=== PATIENT | male | born 1960 | race Caucasian/White ===

== ENCOUNTER 2018-08-16 09:04 | Outpatient (CLI) | payer MEDICAID ==
[2018-08-16] MEDS ORDERED: ALBUTEROL NEB 2.5 MG/3 ML INH ONE (11:30)
== END 2018-08-16 09:05 | disposition home or self-care (01) ==
LOC: RT 09:04
PROVIDERS: ATTEND Internal Medicine
DX: J44.9 Chronic obstructive pulmonary disease, unspecified (principal)
CPT/HCPCS: 94060; 94727; 94729

== ENCOUNTER 2019-03-17 13:07 | Emergency (ER) | payer MEDICAID ==
[2019-03-17 13:20] VITALS: BP 130/74
--- NOTE | 2019-03-17 15:16 | ED Physician Documentation ---
PD HPI URI - Stated complaint Stated Complaint: COUGHING,SNEEKING,WHEEZING - Chief complaint Chief Complaint: Resp - History obtained from History obtained from: Patient - History of Present Illness Timing - onset: How many days ago (7) Timing duration: Days (7) Timing details: Gradual onset Associated symptoms: Rhinorrhea, Sore throat, Productive cough, Dyspnea. No: Fever, Ear pain, Nasal congestion, Sinus pain, Hemoptysis, Chest pain, NVD, Bilateral edema, Unilateral edema Contributing factors: Other (Has recently been right remodeling at home) Improves by: MDI/nebulizer Similar symptoms before: Diagnosis (Bronchitis) Recently seen: Not recently seen - Additional information Additional information: This a 58-year-old man who presents with complaints that a week ago he developed what he thought was just "a summer cold". Over the past 3 days however it is gotten much worse he is coughing up greenish-brownish phlegm. He has a mild sore throat and has some clear mucus drainage. No ear pain. Patient quit smoking 6 months ago. He does feel short of breath. Has a history of asthma and is been using his albuterol 2-3 times a day. He has been treated with a Medrol Dosepak in the past back in 2015 was the most recent time. He denies chest pain. No nausea or vomiting. He also reports that his eyes have been crusting and a little bit goopy which she attributes to the remodeling and wiping his eyes a lot while he is been in that environment. He has tried a multisymptom cold medicine which helps briefly and he had some leftover codeine cough syrup which seem to help the cough quite a bit but made him loopy. 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 Review of Systems Constitutional: denies: Fever Eyes: reports: Discharge, Irritation Ears: denies: Ear pain Nose: reports: Rhinorrhea / runny nose. denies: Congestion Throat: reports: Sore throat Cardiac: denies: Chest pain / pressure Respiratory: reports: Dyspnea, Cough, Wheezing GI: denies: Nausea, Vomiting, Diarrhea Skin: denies: Rash PD PAST MEDICAL HISTORY - Past Medical History Past Medical History: No - Present Medications Home Medications: Ambulatory Orders Medication Instructions Recorded Confirmed Azithromycin [Zithromax] 0 mg PO DAILY #6 tablet 03/17/19 Guaifenesin/Codeine Phosphate 5 ml PO Q4HR PRN #120 liquid 03/17/19 [Cheratussin AC Syrup] Methylprednisolone [Medrol Dose 1 each PO .PACKAGEINSTRUCTIONS 6 03/17/19 Pack] Days #1 each - Allergies Allergies/Adverse Reactions: Allergies Allergy/AdvReac Type Severity Reaction Status Date / Time venom-honey bee Allergy Intermediate Swelling Verified 03/17/19 13:20 - Social History Does the pt smoke?: No Smoking Status: Former smoker PD ED PE NORMAL - Vitals Vital signs reviewed: Yes - General General: Alert and oriented X 3, No acute distress, Well developed/nourished - HEENT HEENT: Atraumatic, PERRL, Moist mucous membranes, Pharynx benign, Other (There is a white mucoid discharge in his nostrils bilaterally. The left eye conjunctiva is mildly injected. There is minimal edema and erythema to the medial canthus of that left eye. No active drainage.) - Neck Neck: Supple, no meningeal sign, No adenopathy, Thyroid normal - Cardiac Cardiac: RRR, No murmur, Strong equal pulses - Respiratory Respiratory: No respiratory distress, Other (He has wheezing throughout the lung ortez that actually cleared significantly with a deep cough. He was still wheezing a little at the bases bilaterally.) - Abdomen Abdomen: Normal bowel sounds - Derm Derm: Normal color, Warm and dry, No rash - Extremities Extremities: No edema - Neuro Neuro: Alert and oriented X 3 - Psych Psych: Normal mood, Normal affect Results - Vitals Vitals: Vital Signs - 24 hr 03/17/19 13:18 Temperature 35.9 C L Heart Rate 84 Respiratory 16 Rate Blood Pressure 130/74 O2 Saturation 97 Oxygen O2 Source Room air PD MEDICAL DECISION MAKING - ED course Complexity details: d/w patient ED course: Patient was placed on a Zithromax Z-Jonathan and a Medrol Dosepak. He still has his albuterol inhaler that he can use up to every 4 hours as needed. Also giving him a scription for codeine cough syrup. Follow-up if he is not improving. Departure - Departure Disposition: 01 Home, Self Care Clinical Impression: Bronchitis Condition: Good Instructions: ED Upper Resp Infec Abx Tx Follow-Up: Ankur Almazan MD [Primary Care Provider] - Prescriptions: Guaifenesin/Codeine Phosphate [Cheratussin AC Syrup] 5 ml PO Q4HR PRN #120 liquid PRN Reason: Cough Azithromycin [Zithromax] 0 mg PO DAILY #6 tablet Methylprednisolone [Medrol Dose Pack] 1 each PO .PACKAGEINSTRUCTIONS 6 Days #1 each Comments: Take the Z-Jonathan as prescribed. Take the Medrol Dosepak as prescribed. Use your an inhaler up to every 4 hours as needed for wheezing. Use the codeine cough syrup as needed but do not drive or operate machinery if taking that. Follow-up with your primary care provider if not improving or return if you have worsening shortness of breath, develop chest pain or other problems arise.
== END 2019-03-17 15:46 | disposition home or self-care (01) ==
LOC: ED 13:07
DX: J40 Bronchitis, not specified as acute or chronic (principal); Z87.891 Personal history of nicotine dependence
CPT/HCPCS: 99283; 99284

== ENCOUNTER 2019-08-24 13:40 | Outpatient (CLI) | payer OTHER, MEDICAID ==
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
== END 2019-08-24 13:41 | disposition home or self-care (01) ==
LOC: DI 13:40
PROVIDERS: ATTEND Internal Medicine
DX: M47.816 Spondylosis without myelopathy or radiculopathy, lumbar region (principal); M43.9 Deforming dorsopathy, unspecified
CPT/HCPCS: 72100

== ENCOUNTER 2019-09-06 10:19 | Outpatient (CLI) | payer OTHER, MEDICAID | END 2019-09-06 10:20 | disposition home or self-care (01) | LOC: LAB 10:19 | PROVIDERS: ATTEND Internal Medicine | DX: N52.1 Erectile dysfunction due to diseases classified elsewhere (principal) | CPT/HCPCS: 36415; 81599; 84402; 84403 ==

== ENCOUNTER 2019-09-07 15:29 | Outpatient (CLI) | payer OTHER, MEDICAID ==
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
== END 2019-09-07 15:30 | disposition home or self-care (01) ==
LOC: DI 15:29
PROVIDERS: ATTEND Internal Medicine
DX: S22.080D Wedge compression fracture of T11-T12 vertebra, subsequent encounter for fracture with routine healing (principal)
CPT/HCPCS: 77080

== ENCOUNTER 2020-05-07 08:00 | Outpatient (CLI) | payer MEDICAID, OTHER ==
--- NOTE | 2020-05-07 12:15 | XRAY Report ---
PROCEDURE: Knee 3 View LT INDICATIONS: KNEE PAIN, LEFT TECHNIQUE: 3 views of the left knee(s) were acquired. COMPARISON: None. FINDINGS: Bones: No fractures or dislocations. No suspicious bony lesions. Soft tissues: No joint effusion. No suspicious soft tissue calcifications. IMPRESSION: No fracture. No osseous lesion. If there is continued clinical concern for pathology, then repeat pl ain film radiographs (7-10 days) or advanced imaging (CT, MR, bone scan) should be considered for fur ther evaluation. Reviewed by: Malia Phelan MD, PhD on 05/07/2020 12:13 PM PDT Approved by: Malia Phelan MD, PhD on 05/07/2020 12:13 PM PDT Station ID: [id number]
== END 2020-05-07 23:59 | disposition home or self-care (01) ==
LOC: DI.S 08:00
PROVIDERS: ATTEND Physician Assistant Medical
DX: M25.562 Pain in left knee (principal)

== ENCOUNTER 2020-05-25 10:38 | Outpatient (CLI) | payer MEDICAID | END 2020-05-25 23:59 | disposition home or self-care (01) | LOC: LAB.R 10:38 | PROVIDERS: ATTEND Physician Assistant Medical | DX: L03.116 Cellulitis of left lower limb (principal) | CPT/HCPCS: 87070; 87181; 87205 ==

== ENCOUNTER 2020-06-28 07:15 | Outpatient (CLI) | payer MEDICAID ==
[2020-06-28 13:04] LABS: BASOPHILS % (AUTO) 0.5 %; EOSINOPHILS # (AUTO) 0.2 10^3/uL (0.0-0.7); HGB - HEMOGLOBIN 14.7 g/dL (14.0-18.0); LYMPHOCYTES # (AUTO) 2.2 10^3/uL (1.5-3.5); LYMPHOCYTES % (AUTO) 29.5 %; MEAN CORPUSCULAR HEMOGLOBIN 31.3 pg (27.0-31.0); MEAN CORPUSCULAR HGB CONC 31.9 g/dL (32.0-36.0); MEAN CORPUSCULAR VOLUME 98.1 fL (80.0-94.0); MEAN PLATELET VOLUME 11.1 fL (7.4-11.4); MONOCYTES # (AUTO) 0.7 10^3/uL (0.0-1.0); NEUTROPHILS # (AUTO) 4.1 10^3/uL (1.5-6.6); NEUTROPHILS % (AUTO) 56.5 %; PLT - PLATELET COUNT 254 10^3/uL (130-450); RED CELL DISTRIBUTION WIDTH 13.5 % (12.0-15.0); WHITE BLOOD COUNT 7.3 x10^3/uL (4.8-10.8)
[2020-06-28 13:34] LABS: ALBUMIN/GLOBULIN RATIO 1.4 (1.0-2.2); ALKALINE PHOSPHATASE 51 IU/L (42-121); ALT ALANINE AMINOTRANSFERASE 21 IU/L (10-60); AST ASPARTATE AMINOTRANSFERASE 17 IU/L (10-42); BILIRUBIN,TOTAL 0.6 mg/dL (0.2-1.0); BUN - BLOOD UREA NITROGEN 16 mg/dL (6-20); CALCIUM 8.6 mg/dL (8.5-10.3); CARBON DIOXIDE - CO2 28 mmol/L (21-32); CHLORIDE 102 mmol/L (101-111); CHOL/HDL RATIO 4.4 (<5.0); CHOLESTEROL 195 mg/dL; CREATININE 0.8 mg/dL (0.6-1.2); GLUCOSE 114 mg/dL (70-100); HDL CHOLESTEROL 44 mg/dL; LDL CHOLESTEROL,CALCULATED 121 mg/dL; LDL/HDL RATIO 2.8 (<3.6); SODIUM 138 mmol/L (135-145); TOTAL PROTEIN 6.8 g/dL (6.7-8.2); VLDL CHOLESTEROL 30 mg/dL
[2020-06-28 13:53] LABS: CREATININE,URINE 141.6 mg/dL; MICROALBUM/CREATININE RATIO,UR 2.8 ug/mg (<30.0); MICROALBUMIN,URINE 0.4 mg/dL (0-300.0)
[2020-06-28 14:24] LABS: CRP - C-REACTIVE PROTEIN < 1.0 mg/dL (0-1.0)
== END 2020-06-28 23:59 | disposition home or self-care (01) ==
LOC: LAB.WCP 07:15
PROVIDERS: ATTEND Family Medicine
DX: E11.628 Type 2 diabetes mellitus with other skin complications (principal); M54.5 Low back pain; G89.29 Other chronic pain; I87.2 Venous insufficiency (chronic) (peripheral); L40.9 Psoriasis, unspecified; L03.116 Cellulitis of left lower limb; M25.562 Pain in left knee
CPT/HCPCS: 36415; 80050; 80061; 82043; 82570; 83036; 83721; 84153; 85651; 86140

== ENCOUNTER 2020-10-02 09:12 | Outpatient (CLI) | payer MEDICAID ==
--- NOTE | 2020-10-02 11:30 | XRAY Report ---
PROCEDURE: Chest 2 View X-Ray INDICATIONS: COPD TECHNIQUE: 2 view(s) of the chest. COMPARISON: None. FINDINGS: Surgical changes and devices: None. Lungs and pleura: No pleural effusions or pneumothorax. Lungs are clear. Mediastinum: Mediastinal contours are normal. Heart size is normal. Minimal wedging of the lower thoracic vertebral bodies, which could be physiologic, technically age i ndeterminate.. IMPRESSION: No acute disease Reviewed by: Srinivas Diaz MD on 10/02/2020 11:28 AM PST Approved by: Srinivas Diaz MD on 10/02/2020 11:28 AM PST Station ID: [id number]
== END 2020-10-02 23:59 | disposition home or self-care (01) ==
LOC: DI.WCP 09:12
PROVIDERS: ATTEND Family Medicine
DX: J44.9 Chronic obstructive pulmonary disease, unspecified (principal)

== ENCOUNTER 2020-10-30 18:35 | Outpatient (CLI) | payer MEDICAID | END 2020-10-30 18:36 | disposition EMS.NT | LOC: EMS 18:35 | DX: R53.81 Other malaise (principal); R42 Dizziness and giddiness ==

== ENCOUNTER 2021-04-09 12:11 | Emergency (ER) | payer MEDICAID ==
--- NOTE | 2021-04-09 12:33 | ED Physician Documentation ---
History of Present Illness - Stated complaint Stated Complaint: AFIB - Chief complaint Chief Complaint: Cardiac - Additonal information Additional information: 61-year-old male who has a history of COPD, hypertension and asthma as well as early diabetes (last A1c 6) presents to emergency department for evaluation of worsening fatigue and dyspnea that has been ongoing for a few months but progressively worse over the last week. He has also noticed increased swelling in his lower legs. He reports this provider that for about the last week when he wakes up in the morning he feels a panic in his chest and palpitations which she has never experienced before. Due to the worsening fatigue and shortness of air he did go to a walk-in clinic where an EKG was completed that showed A. fib with RVR up to 140 he was thus advised to come to the ER. He denies any previous history of atrial fibrillation. No history of stroke or coronary artery disease. This gentleman is fully vaccinated for COVID-19 in October 2020. Meds: Include but not limited to hydrochlorothiazide, atorvastatin, albuterol, Pulmicort. Review of Systems Constitutional: denies: Fever, Chills Eyes: reports: Reviewed and negative Ears: reports: Reviewed and negative Nose: reports: Reviewed and negative Throat: reports: Reviewed and negative Cardiac: reports: Palpitations, Pedal edema. denies: Chest pain / pressure, Calf pain Respiratory: reports: Dyspnea, Cough. denies: Hemoptysis GI: denies: Abdominal Pain, Nausea, Vomiting : reports: Reviewed and negative Skin: reports: Reviewed and negative Musculoskeletal: reports: Reviewed and negative PD PAST MEDICAL HISTORY - Present Medications Home Medications: Ambulatory Orders Medication Instructions Recorded Confirmed Azithromycin [Zithromax] 0 mg PO DAILY #6 tablet 03/17/19 Codeine Phosphate/Guaifenesin 5 ml PO Q4HR PRN #120 liquid 03/17/19 [Cheratussin AC Syrup] methylPREDNISolone [Medrol Dose 1 each PO .PACKAGEINSTRUCTIONS 6 03/17/19 Pack] Days #1 each Albuterol Sulf [Ventolin Hfa 1 - 2 puffs PO DAILY 04/09/21 04/09/21 Inhaler] Apixaban [Eliquis] 5 mg PO BID #60 tablet 04/09/21 Budesonide [Pulmicort] 1 - 2 puffs PO BID 04/09/21 04/09/21 Furosemide [Lasix] 40 mg PO DAILY #14 tablet 04/09/21 Glipizide [Glipizide ER] 1 tab PO DAILY 04/09/21 04/09/21 Metoprolol Tartrate [Lopressor] 50 mg PO BID #60 tablet 04/09/21 Pravastatin [Pravachol] 1 tab PO DAILY 04/09/21 04/09/21 hydroCHLOROthiazide [Hydrodiuril] 1 tab PO DAILY 04/09/21 04/09/21 - Allergies Allergies/Adverse Reactions: Allergies Allergy/AdvReac Type Severity Reaction Status Date / Time venom-honey bee Allergy Intermediate Swelling Verified 04/09/21 12:41 - Social History Does the pt smoke?: No Smoking Status: Former smoker PD ED PE EXPANDED - General General: Alert, No acute distress, Other (Obese) - HEENT HEENT: Atraumatic, PERRL, EOMI, Pharynx normal - Neck Neck: Supple w/out meningeal sx. No: Adenopathy - Cardiac Cardiac: Tachy, Irregularly irregular, Murmur Present, Radial strong equal, Pedal strong equal, Cap refill < 2 sec - Respiratory Respiratory: Rhonchi (Generalized rhonchorous air sounds with expiratory wheezing globally. This does clear somewhat with a forceful cough.). No: Clear to ausultation anoop, Distress, Labored - Abdomen Abdomen: Normal Bowel sounds. No: Tender to palpation - Derm Derm: Normal color, Warm and dry. No: Rash - Extremities Extremities: Normal. No: Deformity, Tenderness - Neuro Neuro: Alert and Oriented X 3, CNII-XII intact, Normal gait. No: Confused - GCS Eye Opening: Spontaneous Motor: Obeys Commands Verbal: Oriented Total: 15 Results - Vitals Vitals: Vital Signs - 24 hr 04/09/21 04/09/21 04/09/21 12:16 12:57 13:12 Temperature 96.4 C H Heart Rate 113 H 120 H 126 H Respiratory 18 19 19 Rate Blood Pressure 140/102 H 120/91 H 129/84 H O2 Saturation 97 97 97 04/09/21 04/09/21 14:07 14:44 Temperature Heart Rate 119 H 126 H Respiratory 19 Rate Blood Pressure 124/92 H O2 Saturation 96 Oxygen O2 Source Room air - EKG (time done) 1231 Rate: Rate (enter#) (136) Rhythm: Atrial fibrillation Liguori: RAD Intervals: Prolonged QT QRS: Low voltage Ischemia: Non specific changes Compare to prior EKG: Old EKG unavailable Computer interpretation: Agree with computer - Labs Labs: Laboratory Tests 04/09/21 04/09/21 04/09/21 12:30 12:30 12:30 WBC 12.2 H RBC 4.88 Hgb 15.6 Hct 47.8 MCV 98.0 H MCH 32.0 H MCHC 32.6 RDW 14.0 Plt Count 234 MPV 11.1 Neut # (Auto) 8.9 H Lymph # (Auto) 1.8 [place] # (Auto) 1.2 H Eos # (Auto) 0.2 Baso # (Auto) 0.1 Absolute Nucleated RBC 0.00 Nucleated RBC % 0.0 PT INR D-Dimer Sodium 140 Potassium 4.0 Chloride 101 Carbon Dioxide 29 Anion Gap 10.0 BUN 23 H Creatinine 0.9 Estimated GFR (MDRD) 86 L Glucose 87 Calcium 8.6 Total Bilirubin 1.0 AST 29 ALT 45 Alkaline Phosphatase 42 Troponin I High Sens 9.0 B-Natriuretic Peptide Total Protein 6.4 L Albumin 4.0 Globulin 2.4 Albumin/Globulin Ratio 1.7 Lipase 24 04/09/21 04/09/21 12:30 12:49 WBC RBC Hgb Hct MCV MCH MCHC RDW Plt Count MPV Neut # (Auto) Lymph # (Auto) [place] # (Auto) Eos # (Auto) Baso # (Auto) Absolute Nucleated RBC Nucleated RBC % PT 12.7 H INR 1.1 D-Dimer 276.8 H Sodium Potassium Chloride Carbon Dioxide Anion Gap BUN Creatinine Estimated GFR (MDRD) Glucose Calcium Total Bilirubin AST ALT Alkaline Phosphatase Troponin I High Sens B-Natriuretic Peptide 253 H Total Protein Albumin Globulin Albumin/Globulin Ratio Lipase - Rads (name of study) CXR Radiology: EMP read indepedently (Cardiomegaly with pulmonary vascular congestion) PD MEDICAL DECISION MAKING - ED course Complexity details: reviewed results, d/w patient, d/w network relations consultant (Yousef) ED course: 61-year-old male who carries a history of COPD and hypertension presents the emergency department with progressive dyspnea shortness of air for a number of weeks. He also has associated increased lower extremity swelling. New finding of atrial fibrillation today. He does endorse a feeling of palpitations for likely the last week. Chest x-ray is suggestive of CHF with volume overload. EKG initially showed atrial fibrillation with a rate about 140. We did achieve moderate rate control using 2 doses of Cardizem followed by oral Metroprolol which successfully brought his rate down into the 90s in the 110s. His [id number] score is 2. This gentleman was given a dose of Lasix here in the emergency department and he did diurese nearly 1 L. Following this he was ambulated in the room and hallway with no desaturations and he did report marked dyspnea improvement. We did offer this gentleman an observation admission for further diuresis, rate control as well as likely echocardiogram however he declined that. He feels that he would like to continue to try and manage this as an outpatient. Thus he will be started on Eliquis twice daily as well as Lasix. He is advised to stop his hydrochlorothiazide. He will also be started on metoprolol 50 mg twice daily. I did spend a fair amount of time discussing clinical manifestations of atrial fibrillation and our concerns any time we use anticoagulation. Patient will attempt follow-up with Dr. Briceno in the next week. Emergent worrisome return precautions were discussed. Departure - Departure Disposition: 01 Home, Self Care Clinical Impression: Atrial fibrillation by electrocardiogram CHF (congestive heart failure) Qualifiers: Heart failure type: unspecified Heart failure chronicity: unspecified Qualified Code(s): I50.9 - Heart failure, unspecified Condition: Stable Record reviewed to determine appropriate education?: Yes Instructions: Atrial Fibrillation Dc, ED CHF General Follow-Up: Bronson Hooker MD [Primary Care Provider] - Prescriptions: Apixaban [Eliquis] 5 mg PO BID #60 tablet Furosemide [Lasix] 40 mg PO DAILY #14 tablet Metoprolol Tartrate [Lopressor] 50 mg PO BID #60 tablet Comments: You are seen in the emergency department today for fatigue and shortness of breath. You were found to be in atrial fibrillation which is an irregular heart rate and new for you. Due to the atrial fibrillation you have developed some congestive heart failure. In order to manage the heart rate with atrial fibrillation I would like you to fill the medication for metoprolol and begin taking twice daily. Please measure your heart rates at home. If they are sustained greater than 135 or 140 and you are feeling short of breath or lightheaded you may need to return to the emergency department. In order to help manage the heart failure and reduce some of your excess fluid volume I am prescribing you Lasix. You are to take this once daily. It will cause you to pee a lot so I recommend you take it in the morning. I also recommend daily weights. In order to help prevent blood clots which can be a complication of atrial fibrillation I am starting you on medication called Eliquis. You are to take this twice daily. This does put you at increased risk for bleeding with minor events such as falling and hitting your head. If you develop any sudden severe headache, have black or bloody stools please return immediately to the ER for second evaluation. In order to further evaluate your heart failure and your atrial fibrillation please see Dr. Briceno within the next week. You should be referred for an outpatient echocardiogram. Your electrolytes should also be rechecked within the next week to make sure that the Lasix is not causing your potassium to become too low. I am giving you a limited prescription for the metoprolol, Eliquis and Lasix. Dr. Briceno will need to order these refills in the future. If at any point you feel that your shortness of breath is not improving, you develop chest pain, or have any fainting episodes, slurred speech, facial droop or arm or leg weakness then please return immediately to the ER for a second evaluation. Discharge Date/Time: 04/09/21 15:14
[2021-04-09] MEDS ORDERED: diltiaZEM INJ 5 MG/ML VIAL IVP STA ×2 (12:39→13:06)
[2021-04-09 12:42] LABS: BASOPHILS # (AUTO) 0.1 10^3/uL (0.0-0.1); BASOPHILS % (AUTO) 0.6 %; EOSINOPHILS # (AUTO) 0.2 10^3/uL (0.0-0.7); EOSINOPHILS % (AUTO) 1.2 %; HCT - HEMATOCRIT 47.8 % (42.0-52.0); HGB - HEMOGLOBIN 15.6 g/dL (14.0-18.0); LYMPHOCYTES # (AUTO) 1.8 10^3/uL (1.5-3.5); LYMPHOCYTES % (AUTO) 15.1 %; MEAN CORPUSCULAR HGB CONC 32.6 g/dL (32.0-36.0); MEAN PLATELET VOLUME 11.1 fL (7.4-11.4); MONOCYTES # (AUTO) 1.2 10^3/uL (0.0-1.0); MONOCYTES % (AUTO) 9.6 %; NEUTROPHILS # (AUTO) 8.9 10^3/uL (1.5-6.6); NEUTROPHILS % (AUTO) 73.3 %; PLT - PLATELET COUNT 234 10^3/uL (130-450); RED BLOOD COUNT 4.88 10^6/uL (4.70-6.10); WHITE BLOOD COUNT 12.2 x10^3/uL (4.8-10.8)
--- NOTE | 2021-04-09 13:00 | XRAY Report ---
PROCEDURE: Chest 1 View X-Ray INDICATIONS: Chest Pain TECHNIQUE: One view of the chest was acquired. COMPARISON: 10/02/2020 FINDINGS: Surgical changes and devices: None. Lungs and pleura: No pleural effusions or pneumothorax. Increased opacification of the lung bases bi laterally. There is central vascular congestion and cephalization of pulmonary vasculature suspicious for CHF. Mediastinum: Mediastinal contours appear normal. Heart size is normal. Bones and chest wall: No suspicious bony lesions. Overlying soft tissues appear unremarkable. IMPRESSION: 1. Increased bibasilar opacification which could represent pulmonary edema or pneumonia. 2. Cephalization of pulmonary vasculature and central vascular congestion concerning for CHF. Reviewed by: Malia Phelan MD, PhD on 04/09/2021 12:58 PM PDT Approved by: Malia Phelan MD, PhD on 04/09/2021 12:58 PM PDT Station ID: [id number]
[2021-04-09 13:01] LABS: ALBUMIN/GLOBULIN RATIO 1.7 (1.0-2.2); CALCIUM 8.6 mg/dL (8.5-10.3); CREATININE 0.9 mg/dL (0.6-1.2); TOTAL PROTEIN 6.4 g/dL (6.7-8.2)
[2021-04-09 13:03] LABS: INR 1.1 (0.8-1.2); PT - PROTHROMBIN TIME 12.7 secs (9.9-12.6)
[2021-04-09] MEDS ORDERED: METOPROLOL TARTRATE 50 MG TABLET PO STA (13:33)
[2021-04-09] MEDS ORDERED: FUROSEMIDE 40 MG/4 ML VIAL IVP STA (13:33)
[2021-04-09] MEDS ORDERED: APIXABAN 5 MG TABLET PO STA (13:35)
[2021-04-09 13:41] LABS: D-DIMER 276.8 ng/mL (200.0-255.0)
[2021-04-09 14:07] VITALS: BP 124/92
== END 2021-04-09 15:14 | disposition home or self-care (01) ==
LOC: ED 12:11
DX: I50.9 Heart failure, unspecified (principal); I48.91 Unspecified atrial fibrillation; Z87.891 Personal history of nicotine dependence
CPT/HCPCS: 36415; 71045; 80053; 83690; 83880; 84484; 85025; 85379; 85610; 93005; 96374; 96375; 99284; A9270

== ENCOUNTER 2021-04-11 12:27 | Outpatient (CLI) | payer MEDICAID | END 2021-04-11 12:28 | disposition critical access hospital (66) | LOC: EMS 12:27 | DX: I48.91 Unspecified atrial fibrillation (principal); Z79.01 Long term (current) use of anticoagulants | CPT/HCPCS: A0425; A0427; A0999 ==

== ENCOUNTER 2021-04-11 12:53 | Emergency (ER) | payer MEDICAID ==
[2021-04-11] MEDS ORDERED: METOPROLOL 5 MG/5 ML VIAL IVP STA (13:08)
--- NOTE | 2021-04-11 13:09 | ED Physician Documentation ---
History of Present Illness - Stated complaint Stated Complaint: AFIB RVR - History obtained from History obtained from: Patient, EMS - Additonal information Additional information: 61-year-old gentleman presents by ambulance. He was seen by my partner 2 days ago for symptomatic new onset atrial fibrillation. Looking at the chart, it was not completely clear how long he had been in A. fib. He was discharged on Lasix, Eliquis, and metoprolol at a dose of 50 mg twice a day which he has been compliant with. He was at rest about an hour ago and developed lightheadedness and a woozy feeling similar to prior and EMS was summoned and found him to be in rapid A. fib with a rate of about 150. Prior to arrival got 20 mg of diltiazem IV, still in A. fib but with rate around 110 and much less symptomatic. Review of Systems Ten Systems: 10 systems reviewed and negative Constitutional: reports: Fatigue Cardiac: denies: Chest pain / pressure, Pedal edema, Calf pain Respiratory: denies: Dyspnea PD PAST MEDICAL HISTORY - Past Medical History Cardiovascular: Hypertension, Atrial fibrillation Respiratory: COPD - Present Medications Home Medications: Ambulatory Orders Medication Instructions Recorded Confirmed Azithromycin [Zithromax] 0 mg PO DAILY #6 tablet 03/17/19 Codeine Phosphate/Guaifenesin 5 ml PO Q4HR PRN #120 liquid 03/17/19 [Cheratussin AC Syrup] methylPREDNISolone [Medrol Dose 1 each PO .PACKAGEINSTRUCTIONS 6 03/17/19 Pack] Days #1 each Albuterol Sulf [Ventolin Hfa 1 - 2 puffs PO DAILY 04/09/21 04/09/21 Inhaler] Apixaban [Eliquis] 5 mg PO BID #60 tablet 04/09/21 Budesonide [Pulmicort] 1 - 2 puffs PO BID 04/09/21 04/09/21 Furosemide [Lasix] 40 mg PO DAILY #14 tablet 04/09/21 Glipizide [Glipizide ER] 1 tab PO DAILY 04/09/21 04/09/21 Metoprolol Tartrate [Lopressor] 50 mg PO BID #60 tablet 04/09/21 Pravastatin [Pravachol] 1 tab PO DAILY 04/09/21 04/09/21 hydroCHLOROthiazide [Hydrodiuril] 1 tab PO DAILY 04/09/21 04/09/21 Metoprolol Succinate [Toprol Xl] 3 tab PO DAILY #90 tablet 04/11/21 - Allergies Allergies/Adverse Reactions: Allergies Allergy/AdvReac Type Severity Reaction Status Date / Time venom-honey bee Allergy Intermediate Swelling Verified 04/11/21 13:10 - Social History Does the pt smoke?: No Smoking Status: Former smoker Does the pt drink ETOH?: No Does the pt have substance abuse?: Yes PD ED PE NORMAL - Vitals Vital signs reviewed: Yes - General General: Alert and oriented X 3, No acute distress - HEENT HEENT: PERRL, EOMI - Neck Neck: Supple, no meningeal sign, No bony TTP - Cardiac Cardiac: Other (Irregularly irregular without murmur) - Respiratory Respiratory: No respiratory distress - Abdomen Abdomen: Non tender - Back Back: No CVA TTP, No spinal TTP - Derm Derm: Normal color, Warm and dry - Extremities Extremities: Other (1+ pitting pedal edema bilaterally and symmetric with venous stasis changes) - Neuro Neuro: Alert and oriented X 3, Normal speech Results - Vitals Vitals: Vital Signs - 24 hr 04/11/21 04/11/21 13:07 13:10 Temperature 36.7 C 36.7 C Heart Rate 112 H 112 H Respiratory 18 18 Rate Blood Pressure 143/88 H 143/88 H O2 Saturation 97 97 Oxygen O2 Source Room air - Labs Labs: Laboratory Tests 04/11/21 13:24 Sodium 139 Potassium 4.2 Chloride 101 Carbon Dioxide 28 Anion Gap 10.0 BUN 25 H Creatinine 0.9 Estimated GFR (MDRD) 86 L Glucose 103 H Calcium 8.5 Magnesium 2.0 PD MEDICAL DECISION MAKING - ED course ED course: Discussed with him options including potential transfer to the [facility] for evaluation for AARON and cardioversion versus increasing his beta-blockade and follow-up and he requests the latter. He has been compliant with his medications. 61-year-old gentleman has been in A. fib for an unknown length of time and developed RVR today which was symptomatic. He was feeling fine after one dose of IV metoprolol. His electrolytes are unremarkable. We will increase his metoprolol from 100 mg a day to 150. Departure - Departure Disposition: 01 Home, Self Care Clinical Impression: Atrial fibrillation by electrocardiogram Condition: Good Record reviewed to determine appropriate education?: Yes Instructions: Atrial Fibrillation Dc Prescriptions: Metoprolol Succinate [Toprol Xl] 3 tab PO DAILY #90 tablet Comments: For now you can continue to take the metoprolol that nurse practitioner Yonis gave you but increase it to 3 times a day. I am writing a prescription for long-acting metoprolol that can be taken once a day when you run out of that. Follow-up next week as scheduled with Dr. Alcala for recheck, potential referral for echocardiography and/or cardiology consultation. Return if worse.
[2021-04-11 13:50] LABS: CALCIUM 8.5 mg/dL (8.5-10.3); CREATININE 0.9 mg/dL (0.6-1.2); POTASSIUM 4.2 mmol/L (3.5-5.0)
[2021-04-11 14:06] VITALS: BP 121/96
== END 2021-04-11 14:05 | disposition home or self-care (01) ==
LOC: EDUNIT# → ED 12:53
DX: I48.91 Unspecified atrial fibrillation (principal); Z79.01 Long term (current) use of anticoagulants; Z87.891 Personal history of nicotine dependence
CPT/HCPCS: 36415; 80048; 83735; 96374; 99283

== ENCOUNTER 2021-04-17 11:29 | Outpatient (CLI) | payer MEDICAID | END 2021-04-17 11:30 | disposition home or self-care (01) | LOC: DI 11:29 | PROVIDERS: ATTEND Family Medicine | DX: R06.09 Other forms of dyspnea (principal); J44.9 Chronic obstructive pulmonary disease, unspecified; E66.01 Morbid (severe) obesity due to excess calories; I11.9 Hypertensive heart disease without heart failure; Z87.891 Personal history of nicotine dependence; I48.91 Unspecified atrial fibrillation; I87.8 Other specified disorders of veins | CPT/HCPCS: 93306 ==

== ENCOUNTER 2021-04-17 12:35 | Emergency (ER) | payer MEDICAID ==
--- NOTE | 2021-04-17 12:54 | ED Physician Documentation ---
PD HPI CHEST PAIN - Stated complaint Stated Complaint: HEART FAILURE - History obtained from History obtained from: Patient - Additional information Additional information: 61-year-old gentleman with morbid obesity, hypertension, diabetes borderline and COPD was originally seen by my partner on 09 April with a new diagnosis of A. fib with RVR. He was not offered cardioversion because the symptoms had been going on for potentially weeks or months. He is started on anticoagulation with Eliquis, Lasix at a dose of 40 mg a day and metoprolol 50 mg twice a day. I saw him again 2 days later. He was still in A. fib with RVR. We increased his beta-blockade. In the interim saw his outpatient physician and had an echo done this morning. He is referred over from echo lab because he is still in A. fib with RVR now with a preliminary ejection fraction of 20 to 30% with mild to moderate MR. No clear thrombus on AARON. He has severe dyspnea especially with exertion. He does have orthopnea and is sleeping in a lazy boy. Review of Systems Ten Systems: 10 systems reviewed and negative Constitutional: reports: Fatigue Cardiac: denies: Chest pain / pressure Respiratory: reports: Dyspnea PD PAST MEDICAL HISTORY - Past Medical History Cardiovascular: Hypertension, Atrial fibrillation Respiratory: COPD - Present Medications Home Medications: Ambulatory Orders Medication Instructions Recorded Confirmed Albuterol Sulf [Ventolin Hfa 1 - 2 puffs PO DAILY 04/09/21 04/17/21 Inhaler] Apixaban [Eliquis] 5 mg PO BID #60 tablet 04/09/21 04/17/21 Budesonide [Pulmicort] 1 - 2 puffs PO BID 04/09/21 04/17/21 Glipizide [Glipizide ER] 1 tab PO DAILY 04/09/21 04/17/21 Pravastatin [Pravachol] 1 tab PO DAILY 04/09/21 04/17/21 Metoprolol Succinate [Toprol Xl] 3 tab PO DAILY #90 tablet 04/11/21 04/17/21 Furosemide [Lasix] 80 mg PO DAILY 04/17/21 04/17/21 - Allergies Allergies/Adverse Reactions: Allergies Allergy/AdvReac Type Severity Reaction Status Date / Time venom-honey bee Allergy Intermediate Swelling Verified 04/11/21 13:10 - Social History Does the pt smoke?: No Smoking Status: Former smoker Does the pt drink ETOH?: No Does the pt have substance abuse?: Yes - Family History Family history: reports: Non contributory PD ED PE NORMAL - Vitals Vital signs reviewed: Yes - General General: Alert and oriented X 3, Other (He appears slightly breathless at rest) - HEENT HEENT: PERRL, EOMI - Neck Neck: Supple, no meningeal sign, No bony TTP - Cardiac Cardiac: Other (Irregularly irregular without murmur) - Respiratory Respiratory: Other (Diminished left base) - Abdomen Abdomen: Non tender - Back Back: No CVA TTP, No spinal TTP - Derm Derm: Normal color, Warm and dry - Extremities Extremities: Other (Worsened pedal edema since the last visit now with some blistering of the left lower extremity) - Neuro Neuro: Alert and oriented X 3, Normal speech Results - Vitals Vitals: Vital Signs - 24 hr 04/17/21 04/17/21 04/17/21 12:37 13:20 13:45 Temperature 36.7 C Heart Rate 132 H 119 H 136 H Respiratory 24 16 18 Rate Blood Pressure 136/117 H 118/68 133/106 H O2 Saturation 100 96 95 04/17/21 04/17/21 04/17/21 13:59 14:17 14:41 Temperature Heart Rate 120 H 136 H 128 H Respiratory 20 24 23 Rate Blood Pressure 119/85 H 116/76 118/84 H O2 Saturation 96 96 93 04/17/21 04/17/21 04/17/21 14:52 15:00 15:15 Temperature 36.4 C L Heart Rate 121 H 117 H 104 H Respiratory 20 24 16 Rate Blood Pressure 155/129 H 141/96 H 127/104 H O2 Saturation 94 96 94 04/17/21 04/17/21 04/17/21 15:22 15:30 16:00 Temperature 36.4 C L 36.5 C Heart Rate 96 111 H 110 H Respiratory 17 16 14 Rate Blood Pressure 114/81 H 143/116 H 164/115 H O2 Saturation 94 95 96 04/17/21 04/17/21 04/17/21 16:30 17:00 17:30 Temperature 36.5 C 36.7 C Heart Rate 111 H 108 H 111 H Respiratory 16 14 16 Rate Blood Pressure 146/98 H 126/78 142/97 H O2 Saturation 95 97 95 04/17/21 18:00 Temperature Heart Rate 120 H Respiratory 16 Rate Blood Pressure 124/101 H O2 Saturation 96 Oxygen O2 Source Room air - EKG (time done) 1240 Rate: Rate (enter#) (143) Rhythm: Atrial fibrillation [place]: RAD Intervals: Normal NH QRS: Low voltage Ischemia: No: ST elevation c/w ischemia, ST depression - Labs Labs: Laboratory Tests 04/17/21 04/17/21 04/17/21 12:57 12:57 12:57 WBC 12.2 H RBC 4.92 Hgb 15.3 Hct 48.5 MCV 98.6 H MCH 31.1 H MCHC 31.5 L RDW 14.3 Plt Count 299 MPV 10.8 Neut # (Auto) 8.7 H Lymph # (Auto) 2.0 Mcdonough # (Auto) 1.2 H Eos # (Auto) 0.1 Baso # (Auto) 0.1 Absolute Nucleated RBC 0.00 Nucleated RBC % 0.0 PT 14.7 H INR 1.3 H Sodium 141 Potassium 4.3 Chloride 101 Carbon Dioxide 30 Anion Gap 10.0 BUN 24 H Creatinine 1.1 Estimated GFR (MDRD) 68 L Glucose 97 Calcium 8.6 Magnesium 1.9 Total Bilirubin 1.2 H AST 41 ALT 55 Alkaline Phosphatase 43 Troponin I High Sens B-Natriuretic Peptide Total Protein 5.8 L Albumin 3.7 Globulin 2.1 Albumin/Globulin Ratio 1.8 Nasal Adenovirus (PCR) Nasal B. parapertussis DNA (PCR) Nasal Coronavir 229E PCR Nasal Coronavir HKU1 PCR Nasal Coronavir NL63 PCR Nasal Coronavir OC43 PCR Nasal Enterovir/Rhinovir PCR Nasal Influenza B PCR Nasal Influenza A PCR Nasal Parainfluen 1 PCR Nasal Parainfluen 2 PCR Nasal Parainfluen 3 PCR Nasal Parainfluen 4 PCR Nasal RSV (PCR) Nasal B.pertussis DNA PCR Nasal C.pneumoniae (PCR) Sathya Human Metapneumo PCR Nasal M.pneumoniae (PCR) Nasal SARS-CoV-2 (PCR) 04/17/21 04/17/21 04/17/21 12:57 12:57 12:57 WBC RBC Hgb Hct MCV MCH MCHC RDW Plt Count MPV Neut # (Auto) Lymph # (Auto) Mcdonough # (Auto) Eos # (Auto) Baso # (Auto) Absolute Nucleated RBC Nucleated RBC % PT INR Sodium Potassium Chloride Carbon Dioxide Anion Gap BUN Creatinine Estimated GFR (MDRD) Glucose Calcium Magnesium Total Bilirubin AST ALT Alkaline Phosphatase Troponin I High Sens 8.3 B-Natriuretic Peptide 338 H Total Protein Albumin Globulin Albumin/Globulin Ratio Nasal Adenovirus (PCR) NOT DETECTED Nasal B. parapertussis DNA (PCR) NOT DETECTED Nasal Coronavir 229E PCR NOT DETECTED Nasal Coronavir HKU1 PCR NOT DETECTED Nasal Coronavir NL63 PCR NOT DETECTED Nasal Coronavir OC43 PCR NOT DETECTED Nasal Enterovir/Rhinovir PCR NOT DETECTED Nasal Influenza B PCR NOT DETECTED Nasal Influenza A PCR NOT DETECTED Nasal Parainfluen 1 PCR NOT DETECTED Nasal Parainfluen 2 PCR NOT DETECTED Nasal Parainfluen 3 PCR NOT DETECTED Nasal Parainfluen 4 PCR NOT DETECTED Nasal RSV (PCR) NOT DETECTED Nasal B.pertussis DNA PCR NOT DETECTED Nasal C.pneumoniae (PCR) NOT DETECTED Sathya Human Metapneumo PCR NOT DETECTED Nasal M.pneumoniae (PCR) NOT DETECTED Nasal SARS-CoV-2 (PCR) NOT DETECTED - Rads (name of study) 1v chest Radiology: EMP read contemporaneously (Decreased bibasilar opacities and prominent central pulmonary vasculature) PD MEDICAL DECISION MAKING - ED course ED course: 61-year-old gentleman who had a recent diagnosis of atrial fibrillation now comes over from echo lab with severe cardiomyopathy.Preliminary echo reports reviewed and noted: Mild LV enlargement, mild concentric LVH, EF 25 to 30%, mild right ventricular enlargement, moderate mitral regurgitation, RVSP 51 mm, dilated IVC 61-year-old gentleman who has rapid A. fib of unclear duration now has cardiomyopathy that is severe confirmed by echocardiogram earlier today. Case discussed by phone with hospitalist who is also scallop binder, Dr. Ruelas who agreed with transfer to higher level of care for inpatient evaluation and potential AARON which is not available here. Also probably needs an ischemic work- up. Rate was controlled with divided doses of diltiazem IV with success and he was also successfully diuresed with IV Lasix. Initial calls made to both [facility] [place]. [place] was completely full. [facility] may have a spot later this evening. We also eventually called [facility], they were full and the [facility] to see if they could be of assistance. Disposition pending at the time of shift change. Departure - Departure Disposition: 02 Transfer Acute Care Hosp Clinical Impression: Atrial fibrillation by electrocardiogram Cardiomyopathy Qualifiers: Cardiomyopathy type: unspecified Qualified Code(s): I42.9 - Cardiomyopathy, unspecified Condition: Serious
[2021-04-17] MEDS ORDERED: diltiaZEM INJ 5 MG/ML VIAL IVP STA ×5 (12:57→20:15)
[2021-04-17] MEDS ORDERED: FUROSEMIDE 100 MG/10 ML VIAL IVP STA (12:57)
[2021-04-17 13:04] LABS: BASOPHILS # (AUTO) 0.1 10^3/uL (0.0-0.1); BASOPHILS % (AUTO) 0.6 %; EOSINOPHILS # (AUTO) 0.1 10^3/uL (0.0-0.7); EOSINOPHILS % (AUTO) 0.9 %; HCT - HEMATOCRIT 48.5 % (42.0-52.0); HGB - HEMOGLOBIN 15.3 g/dL (14.0-18.0); LYMPHOCYTES % (AUTO) 16.4 %; MEAN CORPUSCULAR HEMOGLOBIN 31.1 pg (27.0-31.0); MEAN CORPUSCULAR HGB CONC 31.5 g/dL (32.0-36.0); MEAN CORPUSCULAR VOLUME 98.6 fL (80.0-94.0); MEAN PLATELET VOLUME 10.8 fL (7.4-11.4); MONOCYTES # (AUTO) 1.2 10^3/uL (0.0-1.0); MONOCYTES % (AUTO) 10.2 %; NEUTROPHILS # (AUTO) 8.7 10^3/uL (1.5-6.6); NEUTROPHILS % (AUTO) 71.7 %; PLT - PLATELET COUNT 299 10^3/uL (130-450); RED BLOOD COUNT 4.92 10^6/uL (4.70-6.10); RED CELL DISTRIBUTION WIDTH 14.3 % (12.0-15.0); WHITE BLOOD COUNT 12.2 x10^3/uL (4.8-10.8)
[2021-04-17 13:11] LABS: INR 1.3 (0.8-1.2); PT - PROTHROMBIN TIME 14.7 secs (9.9-12.6)
--- NOTE | 2021-04-17 13:14 | XRAY Report ---
PROCEDURE: Chest 1 View X-Ray INDICATIONS: dyspnea TECHNIQUE: One view of the chest was acquired. COMPARISON: Chest radiograph 04/09/2021 FINDINGS: Surgical changes and devices: None. Lungs and pleura: No pleural effusions or pneumothorax. Previously seen bibasilar opacities have dec reased. The pulmonary vasculature appears prominent. Mediastinum: Mediastinal contours appear normal. Cardiac silhouette is stable. Bones and chest wall: No suspicious bony lesions. Overlying soft tissues appear unremarkable. IMPRESSION: Decreased bibasilar opacities when compared to the radiographs from 04/09/2021. Prominent central pulmo nary vasculature is redemonstrated. Reviewed by: Kal Cutler MD on 04/17/2021 1:13 PM PDT Approved by: Kal Cutler MD on 04/17/2021 1:13 PM PDT Station ID: [id number]
[2021-04-17 13:17] LABS: ALBUMIN 3.7 g/dL (3.2-5.5); ALBUMIN/GLOBULIN RATIO 1.8 (1.0-2.2); BILIRUBIN,TOTAL 1.2 mg/dL (0.2-1.0); CALCIUM 8.6 mg/dL (8.5-10.3); CREATININE 1.1 mg/dL (0.6-1.2); MAGNESIUM 1.9 mg/dL (1.7-2.8); POTASSIUM 4.3 mmol/L (3.5-5.0); TOTAL PROTEIN 5.8 g/dL (6.7-8.2)
[2021-04-17 14:03] LABS: B. PARAPERTUSSIS- RESP PCR PAN NOT DETECTED; B. PERTUSSIS- RESP PCR PANEL NOT DETECTED; C. PNEUMONIAE- RESP PCR PANEL NOT DETECTED; CORONAVIRUS 229E-RESP PCR NOT DETECTED; CORONAVIRUS HKU1-RESP PCR NOT DETECTED; CORONAVIRUS NL63-RESP PCR NOT DETECTED; CORONAVIRUS OC43-RESP PCR NOT DETECTED; HUMAN METAPNEUMOVIRUS NOT DETECTED; INFLUENZA A- RESP PCR PANEL NOT DETECTED; INFLUENZA B - RESP PCR PANEL NOT DETECTED; M. PNEUMONIAE- RESP PCR PANEL NOT DETECTED; PARAINFLUENZA VIRUS 1 NOT DETECTED; PARAINFLUENZA VIRUS 2 NOT DETECTED; PARAINFLUENZA VIRUS 3 NOT DETECTED; PARAINFLUENZA VIRUS 4 NOT DETECTED; RHINOVIRUS/ENTEROVIRUS NOT DETECTED; RSV- RESP PCR PANEL NOT DETECTED; SARS-CoV-2 -RESP PCR PANEL NOT DETECTED
[2021-04-17] MEDS ORDERED: DIGOXIN 125 MCG TABLET PO STA (20:16)
[2021-04-17] MEDS ORDERED: APIXABAN 5 MG TABLET ONE (20:32)
[2021-04-17] MEDS ORDERED: FUROSEMIDE 40 MG TABLET ONE (20:32)
[2021-04-17] MEDS ORDERED: diltiaZEM 30 MG TABLET PO ONE (20:33)
[2021-04-17] MEDS ORDERED: diltiaZEM 30 MG TABLET PO SCH (21:00)
[2021-04-17] MEDS ORDERED: APIXABAN 5 MG TABLET PO SCH (21:00)
[2021-04-17] MEDS ORDERED: FUROSEMIDE 20 MG TABLET PO SCH (21:00)
[2021-04-17] MEDS ORDERED: diltiaZEM INJ 5 MG/ML VIAL ONE (21:32)
[2021-04-17] MEDS ORDERED: ACETAMINOPHEN 325 MG TABLET PO STA (22:38)
[2021-04-17] MEDS ORDERED: IBUPROFEN 800 MG TABLET PO STA (22:38)
[2021-04-18 01:39] VITALS: BP 141/78
--- NOTE | 2021-04-18 16:20 | ED Physician Documentation ---
ED Addendum - Addendum Addendum: 04/18/21 16:19 Got a call from Delaney Wilkinson at the [place] [facility] who indicated that the patient was unable to tack picker his prescription because it was never completed. I was able to get into [employer] (formerly [employer] and E scribed this to [facility] in [place].
== END 2021-04-18 02:05 | disposition home or self-care (01) ==
LOC: ED 12:35
DX: I48.91 Unspecified atrial fibrillation (principal); I42.9 Cardiomyopathy, unspecified; Z87.891 Personal history of nicotine dependence; Z20.822 Contact with and (suspected) exposure to COVID-19
CPT/HCPCS: 0202U; 36415; 71045; 80053; 83735; 83880; 84484; 85025; 85610; 93005; 96374; 96375; 96376; 99285; A9270; J1940

== ENCOUNTER 2021-10-01 07:58 | Outpatient (CLI) | payer MEDICAID ==
[2021-10-01 11:52] LABS: BASOPHILS # (AUTO) 0.1 10^3/uL (0.0-0.1); BASOPHILS % (AUTO) 0.8 %; EOSINOPHILS # (AUTO) 0.4 10^3/uL (0.0-0.7); EOSINOPHILS % (AUTO) 5.4 %; HCT - HEMATOCRIT 38.6 % (42.0-52.0); HGB - HEMOGLOBIN 12.6 g/dL (14.0-18.0); LYMPHOCYTES # (AUTO) 2.1 10^3/uL (1.5-3.5); LYMPHOCYTES % (AUTO) 28.9 %; MEAN CORPUSCULAR HEMOGLOBIN 32.9 pg (27.0-31.0); MEAN CORPUSCULAR HGB CONC 32.6 g/dL (32.0-36.0); MEAN CORPUSCULAR VOLUME 100.8 fL (80.0-94.0); MEAN PLATELET VOLUME 11.4 fL (7.4-11.4); MONOCYTES # (AUTO) 0.7 10^3/uL (0.0-1.0); MONOCYTES % (AUTO) 10.1 %; NEUTROPHILS # (AUTO) 3.9 10^3/uL (1.5-6.6); NEUTROPHILS % (AUTO) 54.2 %; PLT - PLATELET COUNT 194 10^3/uL (130-450); RED BLOOD COUNT 3.83 10^6/uL (4.70-6.10); WHITE BLOOD COUNT 7.2 x10^3/uL (4.8-10.8)
[2021-10-01 12:33] LABS: ALBUMIN 3.8 g/dL (3.2-5.5); ALBUMIN/GLOBULIN RATIO 1.3 (1.0-2.2); ALKALINE PHOSPHATASE 51 IU/L (42-121); ALT ALANINE AMINOTRANSFERASE 18 IU/L (10-60); AST ASPARTATE AMINOTRANSFERASE 16 IU/L (10-42); BILIRUBIN,TOTAL 0.6 mg/dL (0.2-1.0); BUN - BLOOD UREA NITROGEN 23 mg/dL (6-20); CALCIUM 8.7 mg/dL (8.5-10.3); CARBON DIOXIDE - CO2 31 mmol/L (21-32); CHLORIDE 97 mmol/L (101-111); CHOL/HDL RATIO 4.7 (<5.0); CHOLESTEROL 211 mg/dL; CREATININE 1.2 mg/dL (0.6-1.2); GFR - MDRD 62 (>89); GLUCOSE 130 mg/dL (70-100); HDL CHOLESTEROL 45 mg/dL; LDL CHOLESTEROL,CALCULATED 130 mg/dL; LDL/HDL RATIO 2.9 (<3.6); POTASSIUM 4.7 mmol/L (3.5-5.0); SODIUM 139 mmol/L (135-145); TOTAL PROTEIN 6.7 g/dL (6.7-8.2); TRIGLYCERIDES 180 mg/dL; VLDL CHOLESTEROL 36 mg/dL
[2021-10-01 12:42] LABS: THYROID STIMULATING HORMONE 4.2 uIU/mL (0.34-5.60)
[2021-10-01 12:51] LABS: ESTIMATED AVERAGE GLUCOSE 123 mg/dL (70-100); HEMOGLOBIN A1c% 5.9 % (4.27-6.07)
== END 2021-10-01 07:59 | disposition home or self-care (01) ==
LOC: LAB.N 07:58
PROVIDERS: ATTEND Nurse Practitioner Family
DX: E11.9 Type 2 diabetes mellitus without complications (principal); Z13.220 Encounter for screening for lipoid disorders
CPT/HCPCS: 36415; 80050; 80061; 83036; 83721

== ENCOUNTER 2023-11-04 07:25 | Outpatient (CLI) | payer OTHER ==
[2023-11-04 11:53] LABS: BASOPHILS # (AUTO) 0.1 10^3/uL (0.0-0.1); BASOPHILS % (AUTO) 0.6 %; EOSINOPHILS # (AUTO) 0.2 10^3/uL (0.0-0.7); EOSINOPHILS % (AUTO) 2.9 %; HCT - HEMATOCRIT 49.1 % (42.0-52.0); HGB - HEMOGLOBIN 15.2 g/dL (14.0-18.0); LYMPHOCYTES # (AUTO) 1.8 10^3/uL (1.5-3.5); LYMPHOCYTES % (AUTO) 23.7 %; MEAN CORPUSCULAR VOLUME 100.2 fL (80.0-94.0); MEAN PLATELET VOLUME 10.7 fL (7.4-11.4); MONOCYTES # (AUTO) 0.7 10^3/uL (0.0-1.0); MONOCYTES % (AUTO) 9.5 %; NEUTROPHILS # (AUTO) 4.8 10^3/uL (1.5-6.6); NEUTROPHILS % (AUTO) 62.8 %; PLT - PLATELET COUNT 259 10^3/uL (130-450); RED CELL DISTRIBUTION WIDTH 13.9 % (12.0-15.0); WHITE BLOOD COUNT 7.7 x10^3/uL (4.8-10.8)
[2023-11-04 12:14] LABS: ALBUMIN/GLOBULIN RATIO 1.7 (1.0-2.2); ALKALINE PHOSPHATASE 58 IU/L (42-121); ALT ALANINE AMINOTRANSFERASE 16 IU/L (10-60); AST ASPARTATE AMINOTRANSFERASE 16 IU/L (10-42); BILIRUBIN,TOTAL 0.5 mg/dL (0.2-1.0); BUN - BLOOD UREA NITROGEN 21 mg/dL (6-20); CALCIUM 9.4 mg/dL (8.5-10.3); CARBON DIOXIDE - CO2 32 mmol/L (21-32); CHLORIDE 101 mmol/L (101-111); CHOL/HDL RATIO 3.3 (<5.0); CHOLESTEROL 141 mg/dL; CREATININE 1.1 mg/dL (0.6-1.3); GFR - MDRD 68 (>89); GLUCOSE 115 mg/dL (74-104); HDL CHOLESTEROL 43 mg/dL; LDL CHOLESTEROL,CALCULATED 73 mg/dL; LDL/HDL RATIO 1.7 (<3.6); POTASSIUM 5.1 mmol/L (3.5-4.5); SODIUM 136 mmol/L (135-145); TOTAL PROTEIN 6.4 g/dL (6.4-8.9); TRIGLYCERIDES 126 mg/dL (48-352); VLDL CHOLESTEROL 25 mg/dL
[2023-11-04 12:16] LABS: ESTIMATED AVERAGE GLUCOSE 131 mg/dL (70-100); HEMOGLOBIN A1c% 6.2 % (4.27-6.07)
[2023-11-04 12:20] LABS: THYROID STIMULATING HORMONE 1.28 uIU/mL (0.34-5.60)
== END 2023-11-04 07:26 | disposition home or self-care (01) ==
LOC: LAB.N 07:25
PROVIDERS: ATTEND Nurse Practitioner Family
DX: I10 Essential (primary) hypertension (principal); E78.5 Hyperlipidemia, unspecified; E11.9 Type 2 diabetes mellitus without complications; E66.01 Morbid (severe) obesity due to excess calories; Z12.5 Encounter for screening for malignant neoplasm of prostate
CPT/HCPCS: 36415; 80053; 80061; 83036; 83721; 84153; 84443; 85025